=== PATIENT | female | born 2000 | race Caucasian/White ===

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

== ENCOUNTER 2022-05-24 04:50 | Inpatient (IN) | payer OTHER ==
[2022-05-24] MEDS ORDERED: BUTORPHANOL TARTRATE 2 MG/ML VIAL ONE (05:57)
[2022-05-24] MEDS ORDERED: ELECTROLYTE-148 SOLN 1,000 ML IV SCH ×2 (05:58→06:30)
[2022-05-24] MEDS ORDERED: PROMETHAZINE HCL 25 MG/1 ML VIAL ONE (05:58)
[2022-05-24] MEDS ORDERED: BUTORPHANOL TARTRATE 2 MG/ML VIAL IVPB ONE (05:58)
[2022-05-24] MEDS ORDERED: PROMETHAZINE HCL 25 MG/1 ML VIAL IVPB ONE (05:58)
[2022-05-24] MEDS ORDERED: PROMETHAZINE HCL 25 MG/1 ML VIAL IVPUSH ONE (06:18)
[2022-05-24] MEDS ORDERED: BUTORPHANOL TARTRATE 1 MG/ML VIAL IVPB ONE (06:18)
[2022-05-24 06:19] LABS: BASO % 0.5 % (0-2.0); EOS % 0.9 % (0-4.5); HEMATOCRIT 35.1 % (32.4-45.2); HEMOGLOBIN 11.5 GM/dL (10.7-15.3); LYMPH % 24.5 % (8-40); MCHC 32.7 g/dl (32.0-36.0); MEAN CELL VOLUME 88.7 fl (80-96); MEAN PLT VOLUME 10.8 fl (7.5-11.1); MONO % 7.5 % (3.8-10.2); NEUT % 66.6 % (42.8-82.8); PLATELET COUNT 170 10^3/uL (134-434); RBC 3.96 M/mm3 (3.60-5.2); RDW 14.9 % (11.6-15.6); WHITE BLOOD COUNT 11.8 K/mm3 (4.0-10.0)
[2022-05-24 06:26] LABS: INR 1.05 (0.83-1.09); PROTHROMBIN TIME (PATIENT) 12.2 SEC (9.7-13.0)
[2022-05-24 06:29] LABS: ACTIVATED PTT 30.7 SECONDS (25.2-36.5)
[2022-05-24 06:35] LABS: CALCIUM 8.8 mg/dL (8.5-10.1)
[2022-05-24 06:36] LABS: BLOOD UREA NITROGEN 10.3 mg/dL (7-18)
[2022-05-24 06:39] LABS: CREATININE 0.5 mg/dL (0.55-1.3)
[2022-05-24 06:43] VITALS: BMI 28.0
[2022-05-24] MEDS ORDERED: OXYTOCIN 20 UNITS in 0.9% NS 20 UNIT/1,000 ML INFUS.BAG IV ONE ×2 (08:08→09:36)
[2022-05-24] MEDS: OXYTOCIN 20 UNITS in 0.9% NS 20 UNIT/1,000 ML INFUS.BAG IV SCH ×2 (08:36→09:40)
[2022-05-24] MEDS ORDERED: BENZOCAINE 28 GM HEMORRHOIDAL OINTMENT TP PRN (08:47)
[2022-05-24] MEDS ORDERED: BENZOCAINE 20% 57 GM BOTTLE TP PRN (08:47)
[2022-05-24] MEDS ORDERED: WITCH HAZEL 50% (TUCKS) 40 PAD/JAR PAD TP PRN (08:47)
[2022-05-24] MEDS ORDERED: BISACODYL 10 MG SUPP.RECT RC PRN (08:47)
[2022-05-24] MEDS ORDERED: METHYLERGONOVINE MALEATE 0.2 MG/1 ML AMP IM PRN (08:47)
[2022-05-24] MEDS ORDERED: IBUPROFEN 600 MG TABLET (FP) PO ONE (09:24)
[2022-05-24] MEDS ORDERED: PRENATAL VITAMINS W/ FOLIC ACID TABLET (FP) PO ONE (09:24)
[2022-05-24] MEDS: PRENATAL VITAMINS W/ FOLIC ACID TABLET (FP) PO SCH (09:28)
[2022-05-24] MEDS: IBUPROFEN 600 MG TABLET (FP) PO PRN ×2 (09:29→17:51)
[2022-05-25] MEDS: IBUPROFEN 600 MG TABLET (FP) PO PRN ×2 (05:00→22:37)
[2022-05-25 08:21] LABS: BASO % 0.3 % (0-2.0); EOS % 0.9 % (0-4.5); HEMATOCRIT 28.4 % (32.4-45.2); HEMOGLOBIN 9.7 GM/dL (10.7-15.3); LYMPH % 25.7 % (8-40); MCH 30.2 pg (25.7-33.7); MCHC 34.2 g/dl (32.0-36.0); MEAN CELL VOLUME 88.2 fl (80-96); MONO % 7.1 % (3.8-10.2); PLATELET COUNT 136 10^3/uL (134-434); RBC 3.22 M/mm3 (3.60-5.2); RDW 15.2 % (11.6-15.6); WHITE BLOOD COUNT 10.3 K/mm3 (4.0-10.0)
[2022-05-25] MEDS: ACETAMINOPHEN 325 MG TABLET (FP) PO PRN ×2 (09:41→16:08)
[2022-05-25] MEDS: PRENATAL VITAMINS W/ FOLIC ACID TABLET (FP) PO SCH (09:41)
[2022-05-25] MEDS ORDERED: SENNOSIDES/DOCUSATE COMBO (SENNA PLUS) TABLET (UD) PO PRN (22:00)
[2022-05-26] MEDS: IBUPROFEN 600 MG TABLET (FP) PO PRN (08:44)
[2022-05-26] MEDS: PRENATAL VITAMINS W/ FOLIC ACID TABLET (FP) PO SCH (10:22)
[2022-05-26 11:14] VITALS: BP 105/65; PULSE 88; RESP 17; TEMP 97.8
== END 2022-05-26 12:40 | disposition home or self-care (01) | DRG 560 ==
LOC: JLDR 04:50 → J3W 10:35
PROVIDERS: ADMIT Obstetrics & Gynecology; ATTEND Obstetrics & Gynecology
PROC: 10E0XZZ Delivery of Products of Conception, External Approach (ICD-10-PCS; principal; 2022-05-24)
PROC: 0W8NXZZ Division of Female Perineum, External Approach (ICD-10-PCS; 2022-05-24)
DX: O77.0 Labor and delivery complicated by meconium in amniotic fluid (principal); Z3A.39 39 weeks gestation of pregnancy; Z37.0 Single live birth
CPT/HCPCS: 36415; 59409; 71046-TC-FY; 80048; 85025; 85610; 85730; 86780; 86850; 86900; 86901; C9803-CS; U0003; U0005